=== PATIENT | female | born 1975 ===

== ENCOUNTER 2020-05-05 12:49 | Outpatient (REF) | payer MEDICAID, SELFPAY | END 2020-05-05 12:50 | disposition home or self-care (01) | LOC: HO.MRI 12:49 | PROVIDERS: PCP Internal Medicine; Visit Provider Internal Medicine | DX: Z13.89 Encounter for screening for other disorder (principal) ==

== ENCOUNTER 2020-06-16 14:30 | Outpatient (RCR) | payer MEDICAID, SELFPAY ==
--- NOTE | 2020-05-28 14:31 | MHC.OT.OEV ---
[address] [phone] F: [phone] Occupational Therapy Evaluation Diagnosis: B/L Carpal Tunnel Syndrome Date of Onset: 04/25/20 Date of Surgery: Attending Provider: Dr Birch Prescribed Treatment: Eval and Treat MD Follow Up Appointment: History of Current Condition: Pt presents w/ worsening pain in B/L wrists and digits, primarily at nighttime. right worse than left. 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 Enjoys watching tv Living Situation, Family and/or Social Support: Lives w/ 18 yo daughter Current Level of Function and Occupation Self Care, Employment, Leisure: Daughter helps w/ some IADL (sweeping, mopping) Difficulty opening a jar Sleep: Discomfort and numbness with sleeping Driving: WFL Vision: Balance: Pain Assessment Pain Score: 0 Pain Scale Used: Numeric (0 - 10) Pain Location and Description: Pain/numbness free at rest 10/10 nighttime pain/numbness Aggravating Factors: Pain w/ lifting, grasping, nighttime Alleviating Factors: Not relief found to this point Skin and Soft Tissue Assessment Skin and Soft Tissue: Atrophy Comments: Mild atrophy left thenar area Nerve assessment Ulnar Nerve: WNL Median Nerve: Right Impaired Radial Nerve: WNL Comments: Sensory Assessment Temperature: Light Touch: B/L Impaired Proprioception: Vibration: Comments: B/L Greene Param 4.31 Ulnar distribution Edema Assessment Upper Extremity: Lower Extremity: Comments: Dexterity Assessment Dexterity: Comments: Nine Hole Peg R 23 sec L 20 sec Special Tests Comments: Phalen's Test (+) B/L'ly, right > left AROM(PROM) Strength Cervical Cervical Flexion: Cervical Extension: Cervical Lateral Flexion: Cervical Rotation: Comments: Shoulder Flexion: Extension: Abduction: Internal Rotation: External Rotation: Comments: Flexion: Extension: Abduction: Internal Rotation: External Rotation: Comments: Elbow Flexion: Extension: Pronation: Supination: Comments: Flexion: Extension: Pronation: Supination: Comments: Wrist Flexion: Extension: Ulnar Deviation: Radial Deviation: Comments: Flexion: Extension: Ulnar Deviation: Radial Deviation: Comments: Thumb Thumb CMC Flexion: Thumb MCP Flexion: Thumb IP Flexion: Radial Abduction: Palmar Abduction: [place] (Kapandji 0-10): Comments: Left D1 MCP hyperext w/ opposition positioning Digits Index MCP: PIP: DIP: Long MCP: PIP: DIP: Ring MCP: PIP: DIP: Small MCP: PIP: DIP: Comments: Gross Grasp: R 36 lb L 38 lb Lateral Pinch: R 10 lb L 10 lb Two-Point Pinch: R 7 lb L 7 lb Three-Jaw Leobardo: R 10 lb L 9 lb Comments: Patient Education Primary Language: Cutter Aluminum Sheet Required: No Current Knowledge: Understands information with skills for self-management Teaching Method: Demonstration Handouts Verbal Education Needs Identified on Evaluation: ADL's Disease Information Equipment Use Exercise Pain Safety How did patient/family demonstrate learning? Patient demonstrates Patient verbalizes Barriers to Learning: None Readiness for Learning: Accepting Who was educated? Patient Comments: Plan of Care Assessment: Galina presents w/ worsening pain and numbness in bilateral hands and wrists over the past month. 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 She also has some pain and tenderness in both thumbs at CMC w/ mild left MP/CMC arthritic deformity. She will benefit from cont'd OT services for conservative tx of CTS w/ education of joint protection and activity modification to also assist w/ CMC discomfort and dysfunction. STG Duration: 2 weeks Short Term Goals: Ind w/ nighttime orthosis wear B/L gross grasp >40 lb Ind w/ HEP LTG Duration: 4 weeks Prison Goals: QuickDASH score <25 pts Pt to report improved sleep w/ orthosis wear Good carry over w/ joint protection and activity modification w/ home tasks Decrease pain <4/10 w/ sleep and moderate activity Frequency and Duration: The patient will be seen 2x/wk for 6 weeks Treatment Plan: Therapeutic Exercise Therapeutic Activity Home Exercise Program Splinting Patient Education Desensitization/Sensory Re-ed Edema Control ADL Training MHP Cold Packs Soft Tissue Mobilization Kinesiotaping Electronically Signed By: Beth Vanessa OTR/L Reviewed/agree with student documentation: N/A Therapist: Please sign and return to therapist, Thank you for your referral.
--- NOTE | 2020-06-16 15:12 | MHC.OT.DC ---
[address] [phone] F: [phone] Occupational Therapy Discharge Note Provider: Dr. Birch Diagnosis: B/L Carpal Tunnel Syndrome Date of Surgery: Date of Evaluation: 05/26/20 Date of Discharge: Treatments to Date: 3 Cancellations to Date: No Shows to Date: Discharge Status: Achieved Goals Improved Function Independent with HEP Discharge Summary: Reports good carry over w/ nighttime orthosis wear, good carry over w/ HEP and progressing w/ daily activities, minimal pain w/ activity and pain free at rest. Goals met. Electronically Signed By: LUBNA Sibley/Barry Reviewed/agree with student documentation: N/A Therapist: Please Sign and return to therapist, thank you for your referral.
== END 2020-06-16 15:13 | disposition other institution (70) ==
LOC: HO.OT 14:30
PROVIDERS: PCP Internal Medicine; Visit Provider Internal Medicine
DX: G56.03 Carpal tunnel syndrome, bilateral upper limbs (principal)
CPT/HCPCS: 29130; 97035; 97110; 97140; 97165; 97760

== ENCOUNTER 2020-07-05 16:23 | Outpatient (REF) | payer MEDICAID, SELFPAY ==
--- NOTE | 2020-07-05 | XR_ITS ---
EXAMINATION: XR HIP, LEFT CLINICAL INFORMATION: Left hip pain. COMPARISON: CT abdomen/pelvis dated 08/16/2019 TECHNIQUE: Two views of the left hip. FINDINGS: Bones and soft tissues are normal. No fracture. Alignment is anatomic. Hip joint space is maintained. XR/XR hip LT min 2V IMPRESSION: Unremarkable examination.
== END 2020-07-05 16:24 | disposition home or self-care (01) ==
LOC: HO.XRAY 16:23
PROVIDERS: PCP Internal Medicine; Visit Provider Family Medicine
DX: M25.552 Pain in left hip (principal)
CPT/HCPCS: 73502

== ENCOUNTER 2020-10-06 11:35 | Outpatient (REF) | payer MEDICAID, SELFPAY ==
[2020-10-06 12:29] LABS: COVID-19 Test Negative (Negative)
== END 2020-10-06 11:36 | disposition home or self-care (01) ==
LOC: HO.LAB 11:35
PROVIDERS: Visit Provider Internal Medicine
DX: Z20.822 Contact with and (suspected) exposure to COVID-19 (principal)
CPT/HCPCS: 36415; 87635; C9803

== ENCOUNTER 2020-10-20 13:59 | Outpatient (REF) | payer MEDICAID, SELFPAY ==
--- NOTE | ~2020-10-20 | MM_ITS ---
EXAMINATION: MM SCREENING DIGITAL BREAST TOMOSYNTHESIS, BILATERAL CLINICAL INFORMATION: Screening. Asymptomatic. The lifetime risk of breast cancer based on the Tyrer-Cuzick Model is 6%. COMPARISON: Mammography: 01/11/2018 (baseline) TECHNIQUE: Digital breast tomosynthesis is performed in both the craniocaudal and mediolateral oblique views along with computer-aided detection (CAD). Synthesized 2D images are generated from the tomosynthesis. FINDINGS: The breasts are heterogeneously dense, which may obscure small masses (ACR BI-RADS breast composition Category c). Breast tissue composition borders on extremely dense. Parenchymal pattern is similar to prior baseline exam. There is no interval mass or architectural abnormality or abnormal calcifications. The axilla and skin contours are unremarkable. No significant changes. MM/MM tomosynthesis screening BI IMPRESSION: No mammographic evidence of malignancy. ASSESSMENT: BI-RADS 1: Negative RECOMMENDATION: Routine annual mammography screening. This patient's information was entered into a reminder system with a target due date for their next mammogram.
== END 2020-10-20 14:00 | disposition home or self-care (01) ==
LOC: HO.MAMMO 13:59
PROVIDERS: Visit Provider Internal Medicine
DX: Z12.31 Encounter for screening mammogram for malignant neoplasm of breast (principal)
CPT/HCPCS: 77063; 77067

== ENCOUNTER 2021-06-24 08:20 | Outpatient (REF) | payer MEDICAID, SELFPAY ==
[2021-06-24 09:34] LABS: Binax Internal Control QC Valid; Binax Lot number: 9864; Binax Now Covid-19 Ag Negative (Negative)
== END 2021-06-24 08:21 | disposition home or self-care (01) ==
LOC: HO.LAB 08:20
PROVIDERS: Visit Provider Internal Medicine
DX: Z20.822 Contact with and (suspected) exposure to COVID-19 (principal)
CPT/HCPCS: 36415; C9803

== ENCOUNTER 2021-09-06 12:08 | Emergency (ER) | payer MEDICAID, SELFPAY ==
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
[2021-09-06 12:10] VITALS: BP 158/73; PULSE 89; RESP 16; TEMP 36.6; O2SAT 100; BMI 25.4
[2021-09-06 16:57] VITALS: BP 140/88; PULSE 102; RESP 20; TEMP 37.2; O2SAT 96
--- NOTE | 2021-09-06 17:29 | ED.HA ---
HPI - Headache General Chief Complaint: Headache Stated Complaint: fall/head INJ Time Seen by Provider: 09/06/21 16:15 Source: patient Mode of arrival: ambulatory Limitations: no limitations History of Present Illness HPI Narrative: Patient comes to emergency room complaining of a migraine headache. Patient states that approximately 7 days ago she had slipped, fell, did not lose consciousness. The migraine started 2 days after. Patient takes sumatriptan but has not helped. Patient went to see her primary care physician was concerned about a brain bleed, sent to the emergency room for further evaluation. Other than headache, patient has no neurological deficits, denies visual changes. Related Data Previous Rx's Medication Instructions Recorded ketorolac 10 mg tablet 10 mg PO TID PRN 5 Days #10 tab 09/06/21 metoclopramide HCl 5 mg tablet 5 mg PO DAILY PRN #10 tab 09/06/21 (Reglan) Allergies Allergy/AdvReac Type Severity Reaction Status Date / Time SEAFOOD Allergy Unknown DIFFICULTY Uncoded 03/11/20 19:31 BREATHING Review of Systems Review of Systems: Constitutional : No Weight loss, No Fever, No Chills, No Night Sweats, No Fatigue, No Malaise ENT/Mouth : No Hearing loss, No Ear Pain, No Nasal Congestion, No Sinus Pain, No Hoarseness, No sore throat, No Rhinorrhea, No Swallowing Difficulty Eyes: No Eye Pain, No Swelling, No Redness, No Foreign Body, No Discharge, No Vision Changes Cardiovascular : No Chest Pain, No SOB, No Dyspnea on Exertion, No Orthopnea, No Edema, No Palpitations Respiratory : No Cough, No Sputum, No Wheezing, No Smoke Exposure, No Dyspnea Gastrointestinal : No Nausea, No Vomiting, No Diarrhea, No Constipation, No abdominal Pain, No Hematochezia, No Melena Genitourinary : no irregular bleeding, No Dysuria, No Urinary Frequency, No Hematuria, No Urinary Incontinence, No Urgency, No Flank Pain, No Urinary Flow Changes, No Hesitancy Musculoskeletal : No joint pain, No Myalgias, No Joint Swelling Skin : No Skin Lesions, No rash Neuro : No Weakness, No Numbness, No Paresthesias, No Loss of Consciousness, No Dizziness, complaining of migraine headache for 5 days. Psych : No Anxiety/Panic, No Depression, No SI/HI/AH/VH, No Social Issues, Heme/Lymph: No Bruising, No Bleeding,No Lymphadenopathy Endocrine : No Polyuria, No Polydipsia, No Temperature Intolerance [facility] Past Medical History Medical History (Updated 09/06/21 @ 17:36 by Madonna Noriega MD) Migraine Social History Social History Advance Directives: No Advance Directives Information Provided: No Patient : No Physical Exam Vital Signs: Vital Signs: Last Vital Signs Temp 98.9 F 09/06/21 16:57 Pulse 102 H 09/06/21 16:57 Resp 20 09/06/21 16:57 BP 140/88 H 09/06/21 16:57 Pulse Ox 96 09/06/21 16:57 BMI result Body Mass Index 25.4 Const: Other: Appearance: Alert. Oriented X3. No acute distress. Eyes: Pupils equal, round and reactive to light. Complaining of photophobia. ENT: Pharynx normal. Neck: Normal inspection. Neck supple. No lymph nodes noted. No crepitus CVS: Normal heart rate and rhythm. Pulses normal. Normal S1 and S2 Respiratory: No respiratory distress. Breath sounds normal. No Wheezing. No rales Abdomen: Soft and nontender. No rigidity. No distention. Skin: Skin warm and dry. Normal skin color. Normal skin turgor. Extremities: No lower extremity edema. No Lacerations. No Rash Neuro: Oriented X 3. No motor deficit. No sensory deficit. Moving all extremities. No slurred speech. CN 2 through 12 grossly intact Psych: calm, cooperative, normal affect Course Course Course Narrative: I discussed the CT scan with the patient, no acute findings in the rain or neck. Patient likely having a migraine headache. Patient being given IM Toradol, Reglan. I discussed the CT scan findings with the patient, no acute pathology. Patient states that she is almost asymptomatic at this time. Patient picked up her prescription for sumatriptan today. MDM - Headache Imaging Data Brain CT and cervical spine CT: Radiologist's impression: FINDINGS: HEAD: No intracranial mass, hemorrhage, or midline shift is visualized. The ventricles and sulci are proportional. No extra-axial collections are identified. The paranasal sinuses and mastoid air cells are well aerated. CERVICAL SPINE: There is no evidence of acute cervical spine fracture. Vertebral bodies remain normal in height. Cervical vertebrae have normal alignment. There is degenerative disc height narrowing at C6-C7 with near complete loss of height of the disc space. There are spurs of the anterior and posterior endplates of these vertebrae. Posterior spurs impress on the anterior thecal sac centrally at this disc level. The neural foramina remain open bilaterally. No pre- or paravertebral soft tissue abnormality is identified. Limited assessment of the lung apices is unremarkable. CT/CT cervical spine wo con IMPRESSION: 1. No acute intracranial pathology. 2. No CT evidence of acute cervical spine fracture or traumatic subluxation ? Discharge Plan Discharge Clinical Impression: Migraine Patient Disposition: Home, Self-Care Instructions: Migraine Headache (ED) Additional Instructions: Please follow-up with your primary care physician tomorrow. If you have any worsening or new symptoms, please return to the emergency room or call 911 Prescriptions: New ketorolac 10 mg tablet 10 mg PO TID PRN (Reason: pain) 5 Days Qty: 10 0RF Rx Instructions: Intake with Motrin/naproxen, only Tylenol if needed. metoclopramide HCl [Reglan] 5 mg tablet 5 mg PO DAILY PRN (Reason: nausea and vomiting) Qty: 10 0RF Rx Instructions: Take together with ketorolac p.r.n. migraine
[2021-09-06] MEDS: Metoclopramide HCl 10 MG/2 ML VIAL IM (18:15)
[2021-09-06] MEDS: Ketorolac Tromethamine 60 MG/2 ML VIAL IM (18:15)
--- NOTE | 2021-09-06 19:26 | PC.NURSE ---
Took over pt at 7pm from RN , pt a&o, no sob or chest pain.Reviewed discharge instructions and medications. Pt verbalized understanding.
== END 2021-09-06 19:29 | disposition home or self-care (01) ==
PROVIDERS: Emergency Provider Emergency Medicine; PCP Internal Medicine
DX: G43.909 Migraine, unspecified, not intractable, without status migrainosus (principal)
CPT/HCPCS: 70450; 72125; 96372; 99284; J1885; J2765

== ENCOUNTER 2023-01-25 14:39 | Outpatient (REF) | payer MEDICAID, SELFPAY ==
--- NOTE | ~2023-01-25 | US_ITS ---
EXAMINATION: US PELVIS CLINICAL INFORMATION: Abnormal uterine and vaginal bleeding. COMPARISON: None available. TECHNIQUE: Ultrasound of the pelvis is performed using both transabdominal and transvaginal transducers along with Doppler. Transvaginal imaging is performed due to inadequate visualization transabdominally. FINDINGS: Uterus: The uterus is anteverted and measures 9.8 x 3.5 x 4.0 cm. The double wall endometrial thickness is 5 mm. The uterus is smooth in contour and has normal myometrial echogenicity. No visible fibroid. Cervical nabothian cysts. Adnexa: Both ovaries are visualized. There is normal color flow to the adnexa. There is no ovarian torsion. There is no pelvic ascites or fluid collection. Right ovary measures 2.1 x 1.2 x 1.1 cm. Left ovary measures 2.0 x 1.1 x 0.9 cm. US/US pelvic and transvaginal IMPRESSION: Unremarkable pelvic ultrasound examination.
== END 2023-01-25 14:40 | disposition home or self-care (01) ==
LOC: HO.US 14:39
PROVIDERS: PCP Internal Medicine; Visit Provider Student in an Organized Health Care Education/Training Program
DX: N93.9 Abnormal uterine and vaginal bleeding, unspecified (principal)
CPT/HCPCS: 76830; 76856

== ENCOUNTER 2023-02-07 15:28 | Outpatient (REF) | payer MEDICAID, SELFPAY | END 2023-02-07 15:29 | disposition home or self-care (01) | LOC: HO.MAMMO 15:28 | PROVIDERS: PCP Student in an Organized Health Care Education/Training Program; Visit Provider Student in an Organized Health Care Education/Training Program | DX: Z12.31 Encounter for screening mammogram for malignant neoplasm of breast (principal) | CPT/HCPCS: 77063; 77067 ==

== ENCOUNTER → 2023-02-07 16:00 | Outpatient (BNV) | payer MEDICAID, SELFPAY | PROVIDERS: PCP Student in an Organized Health Care Education/Training Program; Visit Provider Radiology Diagnostic Radiology | DX: Z12.31 Encounter for screening mammogram for malignant neoplasm of breast (principal) | CPT/HCPCS: 77063; 77067 ==

== ENCOUNTER 2023-02-08 21:21 | Outpatient (REF) | payer MEDICAID, SELFPAY ==
[2023-02-09 15:17] LABS: BV Int Neg Control Negative (Negative); BV Int Pos Control Positive (Positive)
[2023-02-12 20:34] LABS: HPV mRNA E6/E7 rflx Not Detected (Not Detected)
== END 2023-02-08 21:22 | disposition home or self-care (01) ==
LOC: HO.HHCLNP 21:21
PROVIDERS: Visit Provider Advanced Practice Midwife
DX: Z12.4 Encounter for screening for malignant neoplasm of cervix (principal); Z11.51 Encounter for screening for human papillomavirus (HPV); Z11.3 Encounter for screening for infections with a predominantly sexual mode of transmission; N89.8 Other specified noninflammatory disorders of vagina
CPT/HCPCS: 87480; 87510; 87624; 87660; 88142

== ENCOUNTER 2023-04-16 11:09 | Outpatient (AMB) | payer MEDICAID, SELFPAY ==
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
[2023-04-16 11:24] VITALS: BP 140/80; PULSE 109; RESP 14; O2SAT 99; BMI 25.3
== END 2023-04-16 11:48 | disposition home or self-care (01) ==
PROVIDERS: PCP Student in an Organized Health Care Education/Training Program; Visit Provider Internal Medicine
DX: M54.16 Radiculopathy, lumbar region (principal)
CPT/HCPCS: 99203

== ENCOUNTER → 2023-04-16 11:09 | Outpatient (BNVA) | payer MEDICAID, SELFPAY | PROVIDERS: PCP Student in an Organized Health Care Education/Training Program; Visit Provider Internal Medicine ==

== ENCOUNTER 2023-05-02 18:02 | Outpatient (REF) | payer OTHER, SELFPAY ==
[2023-05-02 18:52] LABS: Influenza A PCR NEGATIVE (Negative); Influenza B PCR NEGATIVE (Negative); Resp Syncy Virus RNA Qual PCR NEGATIVE (Negative); SARS COV2 PCR INHOUSE NEGATIVE (Negative)
== END 2023-05-02 18:03 | disposition home or self-care (01) ==
LOC: HO.HHCLNP 18:02
PROVIDERS: Visit Provider Emergency Medicine
DX: R68.89 Other general symptoms and signs (principal); Z11.52 Encounter for screening for COVID-19
CPT/HCPCS: 0241U; 87070

== ENCOUNTER 2023-12-10 18:00 | Outpatient (REF) | payer MEDICAID, SELFPAY ==
[2023-12-11 04:13] LABS: CT PCR NOT DETECTED (Not Detect.); NG PCR NOT DETECTED (Not Detect.)
[2023-12-11 11:16] LABS: Bacterial Vaginosis PCR NEGATIVE (Negative); Candida Group PCR NOT DETECTED (Not Detect); Candida glab krusei PCR NOT DETECTED (Not Detect); Trichomonas vaginalis PCR NOT DETECTED (Not Detect)
== END 2023-12-10 18:01 | disposition home or self-care (01) ==
LOC: HO.HHCLNP 18:00
PROVIDERS: Visit Provider Emergency Medicine
DX: R30.0 Dysuria (principal)
CPT/HCPCS: 0352U; 0353U; 87086; 87088; 87186

== ENCOUNTER 2024-02-13 14:54 | Outpatient (REF) | payer MEDICAID, SELFPAY ==
--- NOTE | ~2024-02-13 | XR_ITS ---
EXAMINATION: XR FOOT, RIGHT CLINICAL INFORMATION: Pain COMPARISON: None available. TECHNIQUE: 4 views of the right foot. FINDINGS: No fracture or focal lesion or periosteal new bone. No acute subluxation. No abnormality in the plantar soft tissues XR/XR foot RT min 3V IMPRESSION: No fracture or focal lesion. Electronically signed by: Doug Infante MD 02/17/2024 09:09 PM EDT RP
== END 2024-02-13 14:55 | disposition home or self-care (01) ==
LOC: HO.HHCX 14:54
PROVIDERS: Visit Provider Internal Medicine
DX: M79.671 Pain in right foot (principal)
CPT/HCPCS: 73630

== ENCOUNTER 2024-03-27 14:31 | Outpatient (AMB) | payer OTHER, SELFPAY ==
[2024-03-27 14:53] VITALS: BMI 25.3
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
== END 2024-03-27 15:29 | disposition home or self-care (01) ==
PROVIDERS: PCP Student in an Organized Health Care Education/Training Program; Referring Provider Student in an Organized Health Care Education/Training Program; Visit Provider Orthopaedic Surgery
DX: M54.16 Radiculopathy, lumbar region (principal)
CPT/HCPCS: 99203

== ENCOUNTER → 2024-03-27 14:31 | Outpatient (BNVA) | payer MEDICAID, SELFPAY | PROVIDERS: PCP Student in an Organized Health Care Education/Training Program; Visit Provider Orthopaedic Surgery ==